=== PATIENT | female | born 1990 ===

== ENCOUNTER 2023-02-15 06:00 | Day surgery (SDC) | payer OTHER ==
[~2023-02-15] VITALS: Ht 157.5 cm; Wt 62.6 kg
== END 2023-02-15 12:35 | disposition home or self-care (01) ==
LOC: CIR.AMB 06:00
PROVIDERS: ATTEND Otolaryngology Otology & Neurotology
DX: D10.1 Benign neoplasm of tongue (principal); Z20.822 Contact with and (suspected) exposure to COVID-19